=== PATIENT | male | born 1940 | race Caucasian/White ===

== ENCOUNTER 2020-12-26 14:39 | Emergency (ER) | payer MEDICARE, SELFPAY ==
[2020-12-26 14:48] VITALS: BP 116/66; PULSE 73; RESP 16; TEMP 36.8; O2SAT 95; BMI 28.1
[2020-12-26 15:27] VITALS: BP 104/63; PULSE 70; RESP 16; O2SAT 93
--- NOTE | 2020-12-26 15:43 | XRR_ITS ---
PROCEDURE INFORMATION: Exam: XR Chest Exam date and time: 12/26/2020 3:44 PM Age: 80 years old Clinical indication: Other: Weakness TECHNIQUE: Imaging protocol: XR of the chest Views: 1 view. COMPARISON: No relevant prior studies available. FINDINGS: Lungs: Unremarkable. No consolidation. Pleural spaces: Unremarkable. No pleural effusion. No pneumothorax. Heart/Mediastinum: Unremarkable. No cardiomegaly. Bones/joints: Unremarkable. XR/XR chest 1V portable [id number] IMPRESSION: No acute findings.
--- NOTE | 2020-12-26 15:45 | ECG_ITS ---
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
[2020-12-26 15:52] LABS: Basophils % 0.4 %; Eosinophils # 0.1 10^3/uL (0.0-0.8); Eosinophils % 0.4 %; Hematocrit 48.1 % (42.0-52.0); Hemoglobin 15.4 g/dL (11.7-16.6); Lymphocytes # 0.6 10^3/uL (0.8-4.8); Lymphocytes % 5.5 %; Mean Corpuscular Hemoglobin 30.5 pg (28.0-34.0); Mean Corpuscular Volume 95.2 fL (80-94); Mean Platelet Volume 10.1 fL (7.4-10.4); Monocytes # 0.8 10^3/uL (0.2-0.9); Monocytes % 6.7 %; Neutrophils # 9.84 10^3/uL (1.8-7.7); Neutrophils % 86.6 %; Nucleated Red Blood Cells % 0 %; Platelet Count 216 10^3/cmm (130-400); Red Blood Count 5.05 10^6/uL (4.1-5.3); Red Cell Distribution Width 12.8 % (12.1-15.1); White Blood Count 11.4 10^3/uL (4.0-10.0)
[2020-12-26 16:14] LABS: Lactate (Lactic Acid level) 2.1 mmol/L (0.5-2.2)
[2020-12-26 16:15] LABS: Alanine Aminotransferase 24 U/L (0-41); Albumin Level 4.5 g/dL (3.5-5.2); Alkaline Phosphatase 68 IU/L (40-130); Anion Gap 17.5 (5-19); Aspartate Amino Transferase 26 U/L (0-40); Blood Urea Nitrogen 23 mg/dL (8-23); C Reactive Protein 8.6 mg/L (0.0-4.9); Calcium 9.4 mg/dL (8.5-10.5); Carbon Dioxide 19 mmol/L (22-29); Chloride 104 mmol/L (98-107); Globulin 3.4 g/dL (1.3-4.6); Glucose 161 mg/dL (65-115); Lipase 22 U/L (13-60); Osmolality Calculated 289 mOsm/kg (285-295); Potassium 4.5 mmol/L (3.5-5.1); Sodium 136 mmol/L (136-145); Total Bilirubin 0.5 mg/dL (0.15-1.2); Total Protein 7.9 g/dL (6.6-8.7)
[2020-12-26 16:54] VITALS: BP 113/69; PULSE 72; RESP 17; O2SAT 93
[2020-12-26 17:23] VITALS: BP 106/69; PULSE 73; RESP 18; O2SAT 94
[2020-12-26 17:29] LABS: Influenza A by IFA Negative (Negative); Influenza B by IFA Negative (Negative)
--- NOTE | 2020-12-26 18:27 | ED_ITS ---
HPI - Weakness General: Chief complaint: Weakness Stated complaint: Diarrhea/Weakness Time Seen by Provider: 12/26/20 14:48 Source: patient Mode of arrival: ambulatory Limitations: no limitations History of Present Illness: HPI Narrative: This is a 80-year-old male who presents to the emergency department with diarrhea that started last night. He has had multiple episodes overnight and into today. He has associated generalized weakness. Last thing that he ate was a coconut pie that several other members of his family ate none of them have same symptoms. He denies any fever. He is here to be evaluated especially because he feels really weak. MD Complaint: generalized weakness Onset (ago): day(s) (1) Duration: constant Location: generalized Migration: none Relieving factors: none Exacerbating factors: none Associated symptoms: Denies chest pain, chills, confusion, melena, decreased appetite, diaphoresis, dysuria, easy bruising, fever(s), headache(s), myalgias, nausea, rash, short of breath, syncope or vomiting Review of Systems General: Reports: 10 or more systems reviewed and unremarkable except in HPI and below Const: Denies: fever(s), chills or diaphoresis Eyes: Denies: change in vision or blurry vision ENMT: Denies: throat pain, enlarged tonsils, odynophagia, hoarseness, mouth pain or swelling of lips/tongue Card: Denies: chest pain or syncope Resp: Denies: dyspnea, productive cough or non-productive cough GI: Denies: nausea, vomiting or melena : Denies: dysuria Musc: Denies: neck pain, back pain or extremity swelling Skin/Breast: Denies: rash, pruritus or erythema Neuro: Denies: headache(s) or confusion Endo: Denies: polyuria, polydipsia or tired all the time Elder/Lymph: Denies: easy bruising Physical Exam Const: COMMON NORMALS: no acute distress, average body habitus, patient oriented x3, no limitations, healthy appearing, alert and well nourished HENMT: COMMON NORMALS: normocephalic, atraumatic and moist oral mucous membranes HEAD & SCALP: normocephalic and atraumatic Eye: COMMON NORMALS: Equal, round and reactive pupils present, EOMs intact bilaterally, conjunctivae normal and no scleral icterus CONJUNCTIVA: Yes conjunctivae normal PUPIL: Yes Equal, round and reactive pupils present Neck/C-Spine: COMMON NORMALS: no meningeal signs and no JVD Resp: COMMON NORMALS: normal respiratory effort, No retractions, No use of accessory muscles, clear to auscultation bilaterally and percussion normal AUSCULTATION: clear to auscultation bilaterally PERCUSSION: percussion normal Cardio: COMMON NORMALS: no JVD, regular rate, regular rhythm, S1 normal heart sound present, S2 normal heart sound present, No gallops present (Cardio), No clicks present (Cardio), No murmurs present (Cardio), No rub (Cardio) and Peripheral pulses 2+ throughout RATE: regular rate RHYTHM: regular rhythm HEART SOUNDS: S1 normal heart sound present and S2 normal heart sound present PERIPHERAL PULSES: Peripheral pulses 2+ throughout GI: COMMON NORMALS: Normal to inspection, nondistended, normoactive bowel sounds present, Soft to palpation, non-tender, No hepatosplenomegaly present, no masses and no bruits PALPATION: Yes Soft to palpation and Yes No hepatos plenomegaly present Extremity: COMMON NORMALS: normal to inspection, full ROM, capillary refill normal, no calf tenderness and no pedal edema Neuro: COMMON NORMALS: patient oriented x3 SENSORIUM/ORIENTATION: Yes alert MENINGEAL SIGNS: Yes no meningeal signs Skin: COMMON NORMALS: no rashes or lesions noted, no wounds, turgor normal, no jaundice, no petechiae and no mottling GENERAL SKIN EXAM: no rashes or lesions noted and turgor normal Course Reevaluation(s): Reevaluation #1: Discussed his lab and imaging findings with him. Negative for acute findings other than mild acute kidney injury. Discussed admission to the hospital for hydration overnight and recheck of his renal function tomorrow, however the patient wanted to be discharged home. He would rather follow-up with his primary care provider for further testing. He therefore declined hospital stay. He will return if he has any worsening of his symptoms. Time: 18:27 Vital Signs: Vital signs: Vital Signs Temperature 98.2 F 12/26/20 14:48 Pulse Rate 66 12/26/20 19:38 Respiratory Rate 16 12/26/20 19:38 Blood Pressure 142/72 12/26/20 19:38 Pulse Oximetry 93 12/26/20 19:38 MDM - Weakness MDM Narrative: Medical decision making narrative: 80-year-old male with features consistent with acute gastroenteritis which is likely viral in etiology. He has mild acute kidney injury. Patient declined hospital admission and was given 1 L of normal saline prior to discharge. Lab findings are unremarkable with no signs of infection and has only mild leukocytosis. Medical Records: Attestation: I reviewed the patient's medical records. Lab Data: Attestation: I reviewed the patient's lab results. Labs: Lab Results 12/26/20 12/26/20 12/26/20 Range/Units 15:25 15:25 15:25 WBC 11.4 H (4.0-10.0) 10^3/ uL RBC 5.05 (4.1-5.3) 10^6/u L Hgb 15.4 (11.7-16.6) g/dL Hct 48.1 (42.0-52.0) % MCV 95.2 H (80-94) fL MCH 30.5 (28.0-34.0) pg MCHC 32.0 (30.0-36.0) g/dL RDW 12.8 (12.1-15.1) % Plt Count 216 (130-400) 10^3/c mm MPV 10.1 (7.4-10.4) fL Neut % (Auto) 86.6 % Lymph % (Auto) 5.5 % [place] % (Auto) 6.7 % Eos % (Auto) 0.4 % Baso % (Auto) 0.4 % Neut # (Auto) 9.84 H (1.8-7.7) 10^3/u L Lymph # (Auto) 0.6 L (0.8-4.8) 10^3/u L [place] # (Auto) 0.8 (0.2-0.9) 10^3/u L Eos # (Auto) 0.1 (0.0-0.8) 10^3/u L Baso # (Auto) 0.0 (0.0-0.1) 10^3/u L Nucleated RBC % (a uto) 0 % Nucleated RBCs # 0.0 /100WBC Sodium 136 (136-145) mmol/L Potassium 4.5 (3.5-5.1) mmol/L Chloride 104 (98-107) mmol/L Carbon Dioxide 19 L (22-29) mmol/L Anion Gap 17.5 (5-19) BUN 23 (8-23) mg/dL Creatinine 2.0 H (0.7-1.2) mg/dL GFR Calculation Not Reportable Glucose 161 H (65-115) mg/dL Calculated Osmolal ity 289 (285-295) mOsm/k g Lactate 2.1 (0.5-2.2) mmol/L Calcium 9.4 (8.5-10.5) mg/dL Total Bilirubin 0.5 (0.15-1.2) mg/dL AST 26 (0-40) U/L ALT 24 (0-41) U/L Alkaline Phosphata se 68 (40-130) IU/L C-Reactive Protein 8.6 H (0.0-4.9) mg/L Total Protein 7.9 (6.6-8.7) g/dL Albumin 4.5 (3.5-5.2) g/dL Globulin 3.4 (1.3-4.6) g/dL Lipase 22 (13-60) U/L Urine Color (Yellow) Urine Appearance (CLEAR) Urine pH (5-7) Ur Specific Gravit y (1.005-1.030) Urine Protein (Negative) Urine Glucose (UA) (Normal) Urine Ketones (Negative) Urine Blood (Negative) Urine Nitrate (Negative) Urine Bilirubin (Negative) Urine Urobilinogen (Negative) mg/dL Ur Leukocyte Adela ase (Negative) Urine RBC (0-2) /hpf Urine WBC (0-5) /hpf Ur Squamous Epith Cells (0-5) /hpf Calcium Oxalate Cr ystal /hpf Amorphous Sediment /hpf Urine Bacteria (NONE) /hpf Hyaline Casts /lpf Fine Granular Cast s /lpf Urine Mucus /hpf Influenza Type A A g (Negative) Influenza Type B A g (Negative) 12/26/20 12/26/20 Range/Units 16:53 17:18 WBC (4.0-10.0) 10^3/ uL RBC (4.1-5.3) 10^6/u L Hgb (11.7-16.6) g/dL Hct (42.0-52.0) % MCV (80-94) fL MCH (28.0-34.0) pg MCHC (30.0-36.0) g/dL RDW (12.1-15.1) % Plt Count (130-400) 10^3/c mm MPV (7.4-10.4) fL Neut % (Auto) % Lymph % (Auto) % [place] % (Auto) % Eos % (Auto) % Baso % (Auto) % Neut # (Auto) (1.8-7.7) 10^3/u L Lymph # (Auto) (0.8-4.8) 10^3/u L [place] # (Auto) (0.2-0.9) 10^3/u L Eos # (Auto) (0.0-0.8) 10^3/u L Baso # (Auto) (0.0-0.1) 10^3/u L Nucleated RBC % (a uto) % Nucleated RBCs # /100WBC Sodium (136-145) mmol/L Potassium (3.5-5.1) mmol/L Chloride (98-107) mmol/L Carbon Dioxide (22-29) mmol/L Anion Gap (5-19) BUN (8-23) mg/dL Creatinine (0.7-1.2) mg/dL GFR Calculation Glucose (65-115) mg/dL Calculated Osmolal ity (285-295) mOsm/k g Lactate (0.5-2.2) mmol/L Calcium (8.5-10.5) mg/dL Total Bilirubin (0.15-1.2) mg/dL AST (0-40) U/L ALT (0-41) U/L Alkaline Phosphata se (40-130) IU/L C-Reactive Protein (0.0-4.9) mg/L Total Protein (6.6-8.7) g/dL Albumin (3.5-5.2) g/dL Globulin (1.3-4.6) g/dL Lipase (13-60) U/L Urine Color Dark yellow (Yellow) Urine Appearance Sl hazy (CLEAR) Urine pH 5 (5-7) Ur Specific Gravit y 1.030 (1.005-1.030) Urine Protein 2+ H (Negative) Urine Glucose (UA) Norm (Normal) Urine Ketones Negative (Negative) Urine Blood Neg (Negative) Urine Nitrate Negative (Negative) Urine Bilirubin 1+ H (Negative) Urine Urobilinogen 1 H (Negative) mg/dL Ur Leukocyte Adela ase Trace H (Negative) Urine RBC None (0-2) /hpf Urine WBC 15-25 H (0-5) /hpf Ur Squamous Epith Cells Rare (0-5) /hpf Calcium Oxalate Cr ystal 10-15 H /hpf Amorphous Sediment 1+ /hpf Urine Bacteria 2+ H (NONE) /hpf Hyaline Casts 25-40 H /lpf Fine Granular Cast s 10-15 H /lpf Urine Mucus 2+ /hpf Influenza Type A A g Negative (Negative) Influenza Type B A g Negative (Negative) Imaging Data^: CXR: Attestation: I personally reviewed and interpreted this imaging study as follows: Radiologist's impression: [address] [address] XRay Report Signed Patient: Amol Crawford #: [id number] : 1940cct#:[id number] Age/Sex: 80 / MADM Date: 12/26/20 Loc: ERRoom/Bed: Attending Dr: Ordering Provider/Ordering MD: Stephan Lau [place] [facility] [place] of Service: 12/26/20 Procedure(s): XR chest 1V portable [id number] Accession Number(s): [id number] Report Number: [id number] PROCEDURE INFORMATION: Exam: XR Chest Exam date and time: 12/26/2020 3:44 PM Age: 80 years old Clinical indication: Other: Weakness TECHNIQUE: Imaging protocol: XR of the chest Views: 1 view. COMPARISON: No relevant prior studies available. FINDINGS: Lungs: Unremarkable. No consolidation. Pleural spaces: Unremarkable. No pleural effusion. No pneumothorax. Heart/Mediastinum: Unremarkable. No cardiomegaly. Bones/joints: Unremarkable. XR/XR chest 1V portable [id number] IMPRESSION: No acute findings. Dictated By:Fernando Jamison MD Signed By:Fernando Jamison MDSigned Date/Time:12/26/201648 DD/ 47 Discharge Plan Discharge Patient Disposition: Home Clinical Impression: Gastroenteritis, GUILLERMO (acute kidney injury) Condition: Stable Prescriptions: Continued multivitamin Tablet 1 tab PO DAILY RF: 0 atorvastatin 20 mg tablet 20 mg PO DAILY@17 RF: 0 omeprazole 40 mg capsule,delayed release(DR/EC) 40 mg PO DAILY@08 RF: 0 citalopram 20 mg tablet 20 mg PO DAILY@08 RF: 0 lisinopril 5 mg tablet 5 mg PO DAILY@17 RF: 0 fluticasone propionate 50 mcg/actuation spray,suspension 2 spray INTRANASAL DAILY PRN (Reason: Allergy Symptoms) RF: 0 Vitamin C 1 tab PO DAILY RF: 0 Vitamin D3 1 cap PO DAILY RF: 0 zinc 1 cap PO DAILY RF: 0 Discharge Orders: Discharge ED (Routine); Ordered 12/26/20 Ordered By: Stephan Lau Referrals: Jimmy Murphy DO [Primary Care Provider] - 1-3 days Discharge Diet: Usual diet and As Directed Discharge Activity: Increase activity as tolerated Activity Restrictions/Additional Instructions: Return for any new or worsening symptoms. Most diarrhea is self-limiting so I expect this will stop on its own. Drink plenty of fluids to keep well-hydrated and to help your kidney function improved. Follow-up with Dr. Murphy on Monday to repeat the test to check your kidney function and to ensure that they are recovering. Coding Level of Care Code ED Heel Scourer for Drea Diaz
[2020-12-26] MEDS: sodium chloride 0.9% 1,000 ML 999 ML IV (18:40)
[2020-12-26 18:43] VITALS: BP 120/74; PULSE 73; RESP 20; O2SAT 93
[2020-12-26 18:52] LABS: Blood Urine Neg (Negative); Glucose Urine UA Norm (Normal); Ketones Urine Negative (Negative); Protein Urine 2+ (Negative); Urine Appearance SL Hazy (CLEAR); Urine Color Dark Yellow (Yellow); pH Urine 5 (5-7)
[2020-12-26 18:53] LABS: Add Urine Microscopic? YES; Bilirubin Urine 1+ (Negative); Leukocyte Esterase Urine Trace (Negative); Nitrate Urine Negative (Negative); Urobilinogen Urine 1 mg/dL (Negative)
[2020-12-26 18:59] LABS: Bacteria Urine 2+ /hpf; Mucus Urine 2+ /hpf; Squamous Epithelial Cell Urine RARE /hpf (0-5)
[2020-12-26 19:00] LABS: Amorphous Sediment Urine 1+ /hpf; Hyaline Casts Urine 25-40 /lpf; WBC Urine 15-25 /hpf (0-5)
[2020-12-26 19:01] LABS: Add Urine Culture? Yes
[2020-12-26 19:38] VITALS: BP 142/72; PULSE 66; RESP 16; O2SAT 93
== END 2020-12-26 19:38 | disposition home or self-care (01) ==
PROVIDERS: Emergency Provider Family Medicine; PCP Family Medicine
DX: K52.9 Noninfective gastroenteritis and colitis, unspecified (principal); N17.9 Acute kidney failure, unspecified; R19.7 Diarrhea, unspecified
CPT/HCPCS: 71045; 80053; 81001; 82274; 83605; 83630; 83690; 85025; 86140; 87086; 87493; 87506; 87804; 93005; 96360; 99284; J7030

== ENCOUNTER → 2022-06-13 08:23 | Outpatient (BNVA) | payer MEDICARE, SELFPAY | PROVIDERS: PCP Family Medicine; Visit Provider Family Medicine | DX: I10 Essential (primary) hypertension (principal); R53.83 Other fatigue | CPT/HCPCS: 80053; 80061; 82607; 84443; 85025 ==

== ENCOUNTER → 2023-03-03 08:40 | Outpatient (BNVA) | payer MEDICARE, SELFPAY | PROVIDERS: PCP Family Medicine; Visit Provider Family Medicine | DX: M19.90 Unspecified osteoarthritis, unspecified site (principal); R41.3 Other amnesia; R53.83 Other fatigue; I10 Essential (primary) hypertension | CPT/HCPCS: 80053; 80061; 82607; 85025 ==

== ENCOUNTER 2023-08-19 04:25 | Emergency (ER) | payer MEDICARE, SELFPAY ==
[2023-08-19 04:41] VITALS: BP 203/88; PULSE 55; RESP 20; TEMP 36.6; O2SAT 96; BMI 27.3
[2023-08-19] MEDS: tetracaine 0.5% Op Soln 4 mL Btl 1 DROP EYE-LEFT (05:02)
[2023-08-19] MEDS: eye irrigation 30 mL Btl EYE-LEFT (05:07)
[2023-08-19] MEDS: polymyxin-trimethoprim Op Soln 10 mL Btl 1 DROP EYE-LEFT (06:24)
[2023-08-19] MEDS: ketorolac 0.5% Op 5 mL Btl 1 DROP EYE-LEFT (06:27)
[2023-08-19] MEDS: fluorescein 1 mg Strip EYE-LEFT (06:30)
[2023-08-19 06:38] VITALS: BP 205/100; PULSE 53; RESP 18; O2SAT 94
--- NOTE | 2023-08-19 17:00 | ED_ITS ---
HPI - Eye Problem General: Chief complaint: Eye Problems Stated complaint: something in left eye Time Seen by Provider: 08/19/23 04:42 History of Present Illness: 83 year old male gentleman who was grinding on metal yesterday, and today woke up with pain to his left eye. He believes something's in his eye. His eyesight is intact. No discharge. There is some pain with movement period Associated symptoms: Denies fever(s) Review of Systems Const: Denies: fever(s) Eyes: Reports: change in vision (minimal), eye discomfort and eye redness; Denies: blind spots or eye discharge ENMT: Denies: throat pain Resp: Denies: dyspnea GI: Denies: abdominal pain PFSH ED PFSH: Family History Father CAD (coronary artery disease) Hypertension Brother Cancer Diabetes Hypertension Stroke Mother CAD (coronary artery disease) Hypertension Sister Stroke Social History Smoking and tobacco/nicotine status: never used tobacco/nicotine Alcohol intake: never Substance/Drug Use: never Adopted: No Household members: spouse Housing: House Marital status: Number of children: 1 service: No Current occupational status: retired Pets and animals: Yes Current gender identity: Male Physical Exam Const: COMMON NORMALS: no acute distress GENERAL APPEARANCE: cooperative HENMT: COMMON NORMALS: normocephalic, atraumatic, external ears normal and Normal external nose present HEAD & SCALP: normocephalic and atraumatic FACE & SINUS: normal facial exam and face symmetric NOSE: Normal external nose present and Normal nares present EXTERNAL EAR: Yes external ears normal MOUTH: Normal oral and palatal mucosa present Eye: COMMON NORMALS: Equal, round and reactive pupils present and EOMs intact bilaterally ALIGNMENT: Yes alignment normal PERIORBITAL: periorbital findings normal CORNEA: Yes other (corneal foreign body present L eye 8:00 position) PUPIL: Yes Equal, round and reactive pupils present Procedures FB Removal Eye Time Out performed: No Location: eye (L) Topical anesthetic used: tetracaine Foreign body: metal Evidence of corneal penetration: No Technique: irrigation, cotton tip swab and needle Procedure performed under: direct visualization with magnification Post-procedure medication: ophthalmic antibiotic and topical anesthetic Patient tolerated procedure: well and no complications Course Vital Signs: Vital signs: Vital Signs Temperature 98 F 08/19/23 04:41 Pulse Rate 53 L 08/19/23 06:38 Respiratory Rate 18 08/19/23 06:38 Blood Pressure 205/100 08/19/23 06:38 Pulse Oximetry 94 08/19/23 06:38 MDM - Eye Problem Medical Decision Making fb removed. no complication. abrasion present following. ophtho follow up. return for problems. No radiology studies performed this visit Discharge Plan Discharge Patient Disposition: Home Clinical Impression: Corneal abrasion Condition: Stable Prescriptions: No Action naproxen 250 mg tablet 250 mg PO BID PRN (Reason: pain from arthritis) Qty: 60 3RF omeprazole 40 mg capsule,delayed release(DR/EC) See Rx Instructions .ROUTE .COMPLEX Qty: 90 3RF Dose Instruction: TAKE 1 CAPSULE DAILY FOR STOMACH. Rx Instructions: TAKE 1 CAPSULE DAILY FOR STOMACH. atorvastatin 20 mg tablet 20 mg PO DAILY@17 Qty: 90 3RF citalopram 20 mg tablet See Rx Instructions .ROUTE .COMPLEX Qty: 90 3RF Dose Instruction: TAKE 1 TABLET BY MOUTH DAILY Rx Instructions: TAKE 1 TABLET BY MOUTH DAILY losartan 50 mg tablet See Rx Instructions .ROUTE .COMPLEX Qty: 90 3RF Dose Instruction: TAKE 1 TABLET DAILY Rx Instructions: TAKE 1 TABLET DAILY multivitamin Tablet 1 tab PO DAILY fluticasone propionate 50 mcg/actuation spray,suspension 2 spray INTRANASAL DAILY PRN (Reason: Allergy Symptoms) Vitamin C 1 tab PO DAILY Vitamin D3 1 cap PO DAILY zinc 1 cap PO DAILY Discharge Orders: Discharge ED (Routine); Ordered 08/19/23 Ordered By: Shawn Hall Referrals: Rodolfo Le [Physician] - 1-3 days Jimmy Murphy DO [Primary Care Provider] - Patient Instructions: Corneal Abrasion (ED) Activity Restrictions/Additional Instructions: Use the antibiotic drops you were dispensed every 4 hours while awake for the next 5 to 7 days. You may use the pain drops every 6 hours as needed for pain. Return for any problems such as worsening vision, worsening pain despite treatment, other conditions. Call the eye doctor office on Monday for a follow- up appointment next week. Their numbers listed above. Coding Level of Care Code ED Budget Counselor for Drea Diaz
== END 2023-08-19 06:38 | disposition home or self-care (01) ==
PROVIDERS: Emergency Provider Emergency Medicine; PCP Family Medicine
DX: S05.02XA Injury of conjunctiva and corneal abrasion without foreign body, left eye, initial encounter (principal); X58.XXXA Exposure to other specified factors, initial encounter
CPT/HCPCS: 65222; 99283

== ENCOUNTER → 2023-11-20 12:04 | Outpatient (BNVA) | payer MEDICARE, SELFPAY | PROVIDERS: PCP Family Medicine; Visit Provider Family Medicine | DX: I10 Essential (primary) hypertension (principal); M19.90 Unspecified osteoarthritis, unspecified site; R41.3 Other amnesia; F03.90 Unspecified dementia, unspecified severity, without behavioral disturbance, psychotic disturbance, mood disturbance, and anxiety; R53.83 Other fatigue; Z13.6 Encounter for screening for cardiovascular disorders; E03.9 Hypothyroidism, unspecified | CPT/HCPCS: 80053; 80061; 82607; 84443; 85025 ==

== ENCOUNTER 2024-04-25 14:16 | Emergency (ER) | payer MEDICARE, SELFPAY ==
[2024-04-25 14:17] VITALS: BP 164/78; PULSE 67; RESP 15; TEMP 36.6; O2SAT 98
[2024-04-25] MEDS: fluorescein 1 mg Strip EYE-BOTH (14:43)
[2024-04-25] MEDS: tetracaine 0.5% Op Soln 4 mL Btl 1 DROP EYE-BOTH (14:44)
--- NOTE | 2024-04-25 15:01 | W.ED.EYEPROB ---
HPI - Eye Problem General: Chief complaint: Eye Problems Stated complaint: Right eye metal in eye Time Seen by Provider: 04/25/24 14:23 Source: patient Mode of arrival: ambulatory Limitations: no limitations History of Present Illness: Patient is an 83-year-old male presenting to the emergency department complaining of foreign body to right eye prior to arrival. Patient states he was grinding metal when he felt a piece of metal pop up and get him under his glasses into his right eye. He states he still has this foreign body sensation, however the pain is somewhat mild at this time. He is having no changes in vision or any other symptoms to report at this time. He states this has happened before and he has been given drops for it. No other concerning signs or symptoms or historical factors to report at this time. chief complaint: foreign body Onset (ago): minute(s) Onset description: sudden Duration: constant Location: right eye Eye Symptoms: redness, pain and foreign body sensation Place: home Mechanism: direct trauma Severity: mild Associated symptoms: Denies fever(s), headache(s), nausea, neck pain or vomiting Review of Systems General: Reports: 10 or more systems reviewed and unremarkable except in HPI and below Const: Denies: fever(s), chills or fatigue Eyes: Reports: eye discomfort, eye redness and other (Foreign body right eye); Denies: change in vision or blurry vision ENMT: Denies: throat pain, ear or mastoid pain or nasal discharge Card: Denies: chest pain, palpitations, swelling of feet/ankles or lightheadedness Resp: Denies: dyspnea, productive cough or wheezing GI: Denies: abdominal pain, nausea, vomiting, diarrhea or constipation : Denies: flank pain, difficulty urinating, dysuria or urinary frequency Musc: Denies: neck pain, back pain or joint pain Skin/Breast: Denies: rash Neuro: Denies: headache(s), numbness in extremities or weakness in extremities PFSH ED PFSH: Family History Father CAD (coronary artery disease) Hypertension Brother Cancer Diabetes Hypertension Stroke Mother CAD (coronary artery disease) Hypertension Sister Stroke Social History Smoking and tobacco/nicotine status: never used tobacco/nicotine Alcohol intake: never Substance/Drug Use: never Adopted: No Household members: spouse Housing: House Marital status: Number of children: 1 service: No Current occupational status: retired Pets and animals: Yes Current gender identity: Male Physical Exam Const: COMMON NORMALS: no acute distress, patient oriented x3 and no limitations GENERAL APPEARANCE: cooperative, comfortable and well developed ORIENTATION/CONSCIOUSNESS: Yes awake, Yes oriented to person, Yes oriented to place and Yes oriented to time HENMT: COMMON NORMALS: normocephalic, atraumatic and hearing grossly normal bilaterally HEAD & SCALP: normocephalic and atraumatic Eye: COMMON NORMALS: Equal, round and reactive pupils present and EOMs intact bilaterally VISUAL ACUITY: Yes acuity normal ALIGNMENT: Yes alignment normal PERIORBITAL: periorbital findings normal EYELID: eyelids normal CONJUNCTIVA: Yes conjunctival abnormal positive right conjunctival injection diffuse PUPIL: Yes Equal, round and reactive pupils present SLIT LAMP EXAM: Yes slit lamp exam performed with fluorescein and Yes lids/lashes/lacrimal system Lids/lashes/lacrimal system details: normal appearing OTHER: There is no obvious foreign body, or it was flushed out during initial irrigation. No significant corneal abrasion noted. Neck/C-Spine: COMMON NORMALS: full ROM, supple and no JVD Resp: COMMON NORMALS: normal respiratory effort, No retractions, No use of accessory muscles and clear to auscultation bilaterally AUSCULTATION: clear to auscultation bilaterally Cardio: COMMON NORMALS: no JVD, regular rate, regular rhythm, No clicks present (Cardio), No murmurs present (Cardio) and No rub (Cardio) RATE: regular rate RHYTHM: regular rhythm Extremity: COMMON NORMALS: normal to inspection, full ROM and capillary refill normal Neuro: COMMON NORMALS: patient oriented x3, moves all extremities, no focal motor deficits and no sensory deficits noted SENSORIUM/ORIENTATION: Yes oriented to person, Yes oriented to place and Yes oriented to time Psych: COMMON NORMALS: mental status grossly normal and Normal thought process present THOUGHT PROCESS: Normal thought process present Skin: COMMON NORMALS: no rashes or lesions noted GENERAL SKIN EXAM: no rashes or lesions noted Course Vital Signs: Vital signs: Vital Signs Temperature 97.9 F 04/25/24 14:17 Pulse Rate 67 07/04/24 14:17 Respiratory Rate 15 04/25/24 14:17 Blood Pressure 164/78 04/25/24 14:17 Pulse Oximetry 98 04/25/24 14:17 Oxygen Delivery Me thod Room Air 04/25/24 14:17 MDM - Eye Problem Medical Decision Making Patient presented for foreign body sensation in his right eye after metal grinding. No visual changes were reported and he states this has happened for where he was prescribed drops. His physical examination and vitals were normal. Slit-lamp examination of the eyes did not reveal any significant corneal abrasion and there was no sign of foreign body noted on extensive visual examination following tetracaine administration. His pain completely went away after administration and he states that he has not been no longer having the foreign body sensation. Due to his reported improvement in the past we will prescribe the ciprofloxacin that he has been given in the past. He is informed that if he has any visual changes or significant increase of pain to return for reevaluation and ophthalmology consultation. Will follow-up with primary care otherwise. No radiology studies performed this visit Discharge Plan Discharge Patient Disposition: Home Clinical Impression: Corneal abrasion Qualifiers: Encounter type: initial encounter Laterality: right Qualified Code(s): S05.01XA - Injury of conjunctiva and corneal abrasion without foreign body, right eye, initial encounter Condition: Stable Prescriptions: New ciprofloxacin HCl 0.3 % ointment 1 applic ophthalmic (eye) BID 5 Days Qty: 3.5 0RF Rx Instructions: start on day 3 of therapy No Action naproxen 250 mg tablet 250 mg PO BID PRN (Reason: pain from arthritis) Qty: 60 3RF donepezil 5 mg tablet 5 mg PO DAILY Qty: 30 1RF losartan 50 mg tablet See Rx Instructions .ROUTE .COMPLEX Qty: 90 3RF Dose Instruction: TAKE 1 TABLET DAILY Rx Instructions: TAKE 1 TABLET DAILY omeprazole 40 mg capsule,delayed release(DR/EC) See Rx Instructions .ROUTE .COMPLEX Qty: 90 3RF Dose Instruction: TAKE 1 CAPSULE DAILY FOR STOMACH. Rx Instructions: TAKE 1 CAPSULE DAILY FOR STOMACH. atorvastatin 20 mg tablet 20 mg PO DAILY@17 Qty: 90 3RF citalopram 20 mg tablet See Rx Instructions .ROUTE .COMPLEX Qty: 90 3RF Dose Instruction: TAKE 1 TABLET BY MOUTH DAILY Rx Instructions: TAKE 1 TABLET BY MOUTH DAILY multivitamin Tablet 1 tab PO DAILY fluticasone propionate 50 mcg/actuation spray,suspension 2 spray INTRANASAL DAILY PRN (Reason: Allergy Symptoms) Vitamin C 1 tab PO DAILY Vitamin D3 1 cap PO DAILY zinc 1 cap PO DAILY Discharge Orders: Discharge ED (Routine); Ordered 04/25/24 Ordered By: Nick Boyle Referrals: Jimmy Murphy DO [Primary Care Provider] - Discharge Diet: Usual diet Discharge Activity: Increase activity as tolerated Patient Instructions: Corneal Abrasion (ED) Activity Restrictions/Additional Instructions: Ciprofloxacin drops as prescribed. Please return with any changes in vision, increasing pain, or other concerning symptoms you may have. Follow-up with primary care provider. Coding Level of Care Code ED Intellectual Property Legal Assistant for Drea Diaz
[2024-04-25 15:10] VITALS: BP 156/76; PULSE 64; RESP 16; TEMP 36.6; O2SAT 99
== END 2024-04-25 15:09 | disposition home or self-care (01) ==
PROVIDERS: Emergency Provider Physician Assistant; PCP Family Medicine
DX: S05.01XA Injury of conjunctiva and corneal abrasion without foreign body, right eye, initial encounter (principal); W22.8XXA Striking against or struck by other objects, initial encounter; Z79.899 Other long term (current) drug therapy
CPT/HCPCS: 99283

== ENCOUNTER 2024-06-01 09:04 | Emergency (ER) | payer MEDICARE, SELFPAY ==
[2024-06-01 09:43] LABS: Basophils % 0.3 %; Eosinophils # 0.1 10^3/uL (0.0-0.8); Eosinophils % 0.9 %; Hematocrit 42.7 % (37-53); Lymphocytes # 1.6 10^3/uL (0.8-4.8); Mean Corpuscular Hemoglobin 31.3 pg (27-33); Mean Corpuscular Volume 94.7 fl (82-101); Monocytes % 11.6 %; Neutrophils # 5.87 10^3/uL (1.8-7.7); Nucleated Red Blood Cells % 0 %; Platelet Count 159 10^3/cmm (157-399); Red Blood Count 4.51 10^6/uL (3.85-5.65); White Blood Count 8.64 10^3/uL (3.29-11.43)
[2024-06-01 09:59] VITALS: BP 119/64; PULSE 56; RESP 18; TEMP 37.1; O2SAT 95; BMI 27.3
--- NOTE | 2024-06-01 10:40 | W.ED.EAR ---
HPI - Ear Problem General: Chief complaint: Ear Stated complaint: left ear swelling and pain Time Seen by Provider: 06/01/24 09:12 History of Present Illness: 83-year-old man who presents emergency room with redness and swelling of his left outer ear. He says he feels some itching inside his ear. No real pain. This been present for a day or so. No pain on the inside of his ear. No fevers. No altered mental status. No abdominal pain. No nausea or vomiting. Related Data Home Medications Medication Instructions Recorded Confirmed Vitamin C 1 tab PO DAILY 12/26/20 11/18/22 Vitamin D3 1 cap PO DAILY 12/26/20 11/18/22 fluticasone propionate 50 2 spray intranasal DAILY PRN 12/26/20 11/18/22 mcg/actuation nasal Allergy Symptoms spray,suspension multivitamin 1 tab PO DAILY 12/26/20 11/18/22 zinc 1 cap PO DAILY 12/26/20 11/18/22 Previous Rx's Medication Instructions Recorded naproxen 250 mg tablet 250 mg PO BID PRN pain from 03/03/23 arthritis #60 tabs losartan 50 mg tablet See Rx Instructions .Route 07/03/23 .COMPLEX #90 tabs atorvastatin 20 mg tablet 20 mg PO DAILY@17 #90 tabs 11/09/23 omeprazole 40 mg capsule,delayed See Rx Instructions .Route 11/09/23 release .COMPLEX #90 caps donepezil 5 mg tablet 5 mg PO DAILY dementia #30 tabs 11/20/23 citalopram 20 mg tablet See Rx Instructions .Route 04/15/24 .COMPLEX #90 tabs cephalexin 500 mg capsule 500 mg PO BID 5 days #10 caps 06/01/24 dexamethasone 6 mg tablet 6 mg PO DAILY 5 days #5 tabs 06/01/24 Allergies Allergy/AdvReac Type Severity Reaction Status Date / Time No Known Allergies Allergy Verified 04/25/24 14:22 Review of Systems Narrative: Constitutional symptoms: Negative except as documented in HPI. Skin symptoms: Negative except as documented in HPI. Eye symptoms: Negative except as documented in HPI. ENMT symptoms: Negative except as documented in HPI. Respiratory symptoms: Negative except as documented in HPI. Cardiovascular symptoms: Negative except as documented in HPI. Gastrointestinal symptoms: Negative except as documented in HPI. Genitourinary symptoms: Negative except as documented in HPI. Musculoskeletal symptoms: Negative except as documented in HPI. Neurologic symptoms: Negative except as documented in HPI. Psychiatric symptoms: Negative except as documented in HPI. Endocrine symptoms: Negative except as documented in HPI. PFSH ED PFSH: Family History Father CAD (coronary artery disease) Hypertension Brother Cancer Diabetes Hypertension Stroke Mother CAD (coronary artery disease) Hypertension Sister Stroke Social History Smoking and tobacco/nicotine status: never used tobacco/nicotine Alcohol intake: never Substance/Drug Use: never Adopted: No Household members: spouse Housing: House Marital status: Number of children: 1 service: No Current occupational status: retired Pets and animals: Yes Current gender identity: Male Course Vital Signs: Vital signs: Vital Signs Temperature 98.7 F 06/01/24 09:59 Pulse Rate 56 L 06/01/24 09:59 Respiratory Rate 18 06/01/24 09:59 Blood Pressure 119/64 06/01/24 09:59 Pulse Oximetry 95 06/01/24 09:59 Oxygen Delivery Me thod Room Air 06/01/24 09:59 MDM - Ear Medical Decision Making Assessment and plan: Rash of ear. -Either an allergic reaction or cellulitis so treating for both. - Discharged home - Discussed plan with patient. Answered any questions. - Evaluation and treatment of this problem were appropriate in the emergency setting. Lab Data 06/01/24 09:34 Laboratory Results WBC 8.64 10^3/uL (3.29-11.43) 06/01/24 09:34 RBC 4.51 10^6/uL (3.85-5.65) 06/01/24 09:34 Hgb 14.10 g/dL (11.27-16.99) 06/01/24 09:34 Hct 42.7 % (37-53) 06/01/24 09:34 MCV 94.7 fl (82-101) 06/01/24 09:34 MCH 31.3 pg (27-33) 06/01/24 09:34 MCHC 33.0 g/dL (30-55) 06/01/24 09:34 RDW 13.0 % (12.1-15.1) 06/01/24 09:34 Plt Count 159 10^3/cmm (157-399) 06/01/24 09:34 MPV 10.0 fL (7.4-10.4) 06/01/24 09:34 Neut % (Auto) 68.0 % 06/01/24 09:34 Lymph % (Auto) 19.0 % 06/01/24 09:34 [place] % (Auto) 11.6 % 06/01/24 09:34 Eos % (Auto) 0.9 % 06/01/24 09:34 Baso % (Auto) 0.3 % 06/01/24 09:34 Neut # (Auto) 5.87 10^3/uL (1.8-7.7) 06/01/24 09:34 Lymph # (Auto) 1.6 10^3/uL (0.8-4.8) 06/01/24 09:34 [place] # (Auto) 1.0 10^3/uL (0.2-0.9) H 06/01/24 09:34 Eos # (Auto) 0.1 10^3/uL (0.0-0.8) 06/01/24 09:34 Baso # (Auto) 0.0 10^3/uL (0.0-0.1) 06/01/24 09:34 Nucleated RBC % (auto) 0 % 06/01/24 09:34 Nucleated RBCs # 0.0 /100WBC 06/01/24 09:34 No radiology studies performed this visit Discharge Plan Discharge Patient Disposition: Home Clinical Impression: Cellulitis Condition: Stable Prescriptions: New dexamethasone 6 mg tablet 6 mg PO DAILY 5 Days Qty: 5 0RF cephalexin 500 mg capsule 500 mg PO BID 5 Days Qty: 10 0RF No Action naproxen 250 mg tablet 250 mg PO BID PRN (Reason: pain from arthritis) Qty: 60 3RF donepezil 5 mg tablet 5 mg PO DAILY Qty: 30 1RF losartan 50 mg tablet See Rx Instructions .ROUTE .COMPLEX Qty: 90 3RF Dose Instruction: TAKE 1 TABLET DAILY Rx Instructions: TAKE 1 TABLET DAILY omeprazole 40 mg capsule,delayed release(DR/EC) See Rx Instructions .ROUTE .COMPLEX Qty: 90 3RF Dose Instruction: TAKE 1 CAPSULE DAILY FOR STOMACH. Rx Instructions: TAKE 1 CAPSULE DAILY FOR STOMACH. atorvastatin 20 mg tablet 20 mg PO DAILY@17 Qty: 90 3RF citalopram 20 mg tablet See Rx Instructions .ROUTE .COMPLEX Qty: 90 3RF Dose Instruction: TAKE 1 TABLET BY MOUTH DAILY Rx Instructions: TAKE 1 TABLET BY MOUTH DAILY multivitamin Tablet 1 tab PO DAILY fluticasone propionate 50 mcg/actuation spray,suspension 2 spray INTRANASAL DAILY PRN (Reason: Allergy Symptoms) Vitamin C 1 tab PO DAILY Vitamin D3 1 cap PO DAILY zinc 1 cap PO DAILY Discharge Orders: Discharge ED (Routine); Ordered 06/01/24 Ordered By: Johana Villanueva Referrals: Jimmy Murphy DO [Primary Care Provider] - Discharge Diet: Usual diet Discharge Activity: Resume usual activity Patient Instructions: Acute Rash (ED) Activity Restrictions/Additional Instructions: Thank you for choosing [facility] for your healthcare needs today. Please realize this is an emergency room and that we are providing you with a medical screening exam and this may not be complete and all inclusive of all the testing and or work up that you may need to determine your ailment or severity of your illness. You have been screened and evaluated and felt safe for discharge. Health conditions do change or evolve sometimes and as such it is important that you follow up with your Primary Doctor to be re checked, 3-5 days is a general good time frame for follow up. You are always welcome to return to the ED for re assessment if your symptoms are worsening or you have new concerns Coding Level of Care Code ED Control Panel Operator Crude Unit for Drea Diaz
== END 2024-06-01 11:11 | disposition home or self-care (01) ==
PROVIDERS: Family Medicine; Emergency Provider Emergency Medicine; PCP Family Medicine
DX: H60.12 Cellulitis of left external ear (principal)
CPT/HCPCS: 36415; 85025; 99283

== ENCOUNTER → 2024-10-10 10:03 | Outpatient (BNVA) | payer MEDICARE, SELFPAY | PROVIDERS: PCP Family Medicine; Visit Provider Family Medicine | DX: I10 Essential (primary) hypertension (principal); R53.83 Other fatigue; M19.90 Unspecified osteoarthritis, unspecified site; E03.9 Hypothyroidism, unspecified | CPT/HCPCS: 80053; 80061; 82607; 84443 ==

== ENCOUNTER → 2025-10-02 10:18 | Outpatient (BNVA) | payer MEDICARE, SELFPAY | PROVIDERS: PCP Family Medicine; Visit Provider Family Medicine | DX: R41.3 Other amnesia (principal); I10 Essential (primary) hypertension; R53.83 Other fatigue; M19.90 Unspecified osteoarthritis, unspecified site; E03.9 Hypothyroidism, unspecified | CPT/HCPCS: 80053; 80061; 82607; 84443; 85025 ==